=== PATIENT | female | born 1970 | race African-American/Black ===

== ENCOUNTER 2019-01-16 13:32 | Emergency (ER) | payer OTHER ==
[~2019-01-16] VITALS: Ht 167.6 cm; Wt 86.4 kg
[2019-01-16 15:04] VITALS: BP 126/79
== END 2019-01-16 15:00 | disposition home or self-care (01) ==
LOC: EMS 13:34
DX: S09.90XA Unspecified injury of head, initial encounter (principal); V43.52XA Car driver injured in collision with other type car in traffic accident, initial encounter; Y93.89 Activity, other specified; Y92.89 Other specified places as the place of occurrence of the external cause; Y99.8 Other external cause status